=== PATIENT | female | born 1960 | race Caucasian/White ===

== ENCOUNTER 2017-02-10 18:30 | Emergency (ER) | payer OTHER ==
[~2017-02-10] VITALS: Ht 152.4 cm; Wt 59.4 kg
[2017-02-10 18:38] VITALS: Ht 152.4 cm; Wt 59.4 kg
--- NOTE | 2017-02-10 22:17 | ERD ---
ER Documentation Chief Complaint Chief Complaint Abdominal pain HPI The patient is a 56-year-old female, presenting to the ER because of suprapubic abdominal pain intermittently for 1 week. She had similar symptoms previously, denies fever, chills, neck pain, chest pain, complains of dysuria, denies diarrhea, constipation.She does not smoke nor drink Past medical history: Gastritis, DM PSH: Cholecystectomy, one , hysterectomy ROS All systems reviewed and are negative except as per history of present illness. Medications Home Meds Active Scripts Phenazopyridine Hcl* (Pyridium*) 100 Mg Tab, 100 MG PO TID, #6 TAB Prov:JASPER LEGGETT MD 02/11/17 Sulfamethoxazole/Trimethoprim* (Bactrim Ds* Tablet) 1 Each Tablet, 1 TAB PO BID , #14 TAB Prov:JASPER LEGGETT MD 02/11/17 Reported Medications Omeprazole* (Omeprazole*) 20 Mg Capsule.dr, 20 MG PO DAILY, #30 CAP 02/11/17 Allergies Allergies: Coded Allergies: diclofenac (Unverified Allergy, Unknown, 02/11/17) Physical Exam Vitals Vital Signs Date Time Temp Pulse Resp B/P Pulse Ox O2 Delivery O2 Flow Rate FiO2 02/11/17 01:18 60 18 124/71 100 Room Air 02/10/17 23:30 98.0 57 18 126/64 100 Room Air 02/10/17 22:34 97.7 59 18 177/82 97 Room Air 02/10/17 18:38 98.4 71 18 176/79 97 Physical Exam Const: No acute distress. Head: Atraumatic. Eyes: Normal Conjunctiva. ENT: Normal External Ears, Nose and Mouth. Neck: Full range of motion. No meningismus. Resp: Clear to auscultation bilaterally. Cardio: Regular rate and rhythm. Abd: Soft, non distended, normal bowel sounds, Mild epigastric and suprapubic abdominal discomfort, no right lower quadrant, CVA, rigidity, rebound tenderness Skin: No petechiae or rashes. Back: No midline or flank tenderness. Ext: No cyanosis, or edema. Neur: Awake and alert. No focal deficit Psych: Normal Mood and Affect. Result Diagram: 02/10/17221902/10/172219 Results 24 hrs Laboratory Tests Test 02/10/17 22:20 02/10/17 22:50 White Blood Count 10.410^3/ul Red Blood Count 4.7210^6/ul Hemoglobin 13.7g/dl Hematocrit 41.8% Mean Corpuscular Volume 88.6fl Mean Corpuscular Hemoglobin 29.0pg Mean Corpuscular Hemoglobin Concent 32.8g/dl Red Cell Distribution Width 12.7% Platelet Count 32593^3/UL Mean Platelet Volume 10.2fl Neutrophils % 44.1% Lymphocytes % 46.1% Monocytes % 6.0% Eosinophils % 3.0% Basophils % 0.5% Nucleated Red Blood Cells % 0.0/100WBC Neutrophils # 4.610^3/ul Lymphocytes # 4.810^3/ul Monocytes # 0.610^3/ul Eosinophils # 0.310^3/ul Basophils # 0.110^3/ul Nucleated Red Blood Cells # 0.010^3/ul Sodium Level 146mmol/L Potassium Level 3.7mmol/L Chloride Level 107mmol/L Carbon Dioxide Level 29mmol/L Anion Gap 14 Blood Urea Nitrogen 14mg/dl Creatinine 0.58mg/dl Glucose Level 103mg/dl Calcium Level 9.2mg/dl Total Bilirubin 0.6mg/dl Direct Bilirubin 0.00mg/dl Indirect Bilirubin 0.6mg/dl Aspartate Amino Transf (AST/SGOT) 23IU/L Alanine Aminotransferase (ALT/SGPT) 31IU/L Alkaline Phosphatase 107IU/L Total Protein 8.4g/dl Albumin 4.4g/dl Globulin 4.00g/dl Albumin/Globulin Ratio 1.10 Lipase 117U/L Bedside Urine pH (LAB) 6.0 Bedside Urine Protein (LAB) Negative Bedside Urine Glucose (UA) Negative Bedside Urine Ketones (LAB) Negative Bedside Urine Blood 1+ Bedside Urine Nitrite (LAB) Negative Bedside Urine Leukocyte Esterase (L 1+ Current Medications Medications (Trade) Dose Ordered Sig/Eva Route PRN Reason Start Time Stop Time Status Last Admin Dose Admin Ketorolac Tromethamine (Toradol) 30 mg ONCE STAT IV 02/10/17 22:30 02/10/17 22:32 DC 02/10/17 22:45 Pantoprazole (Protonix Tab) 40 mg ONCE ONCE PO 02/10/17 22:30 02/10/17 22:32 DC 11/3/17 22:45 Procedures/MDM MEDICAL MAKING DECISION: The patient is a 56 yo female, presenting with acute cystitis, chronic gastritis. She was treated with Toradol 30 mg IV for pain and Protonix 30 mg p.o. for gastritis with good response. The differential diagnoses considered include but are not limited to cholelithiasis, cholecystitis, cystitis, pancreatitis, hepatitis, gastritis, peptic ulcer disease, gastric ulcer, appendicitis, diverticulitis, cholangitis, choledocholithiasis, partial small bowel obstruction. Departure Diagnosis: Primary Impression: UTI (urinary tract infection) Condition: Good Comments She was discharged with Bactrim DS and Pyridium The patient's blood pressure was elevated (>120/80) but appears stable without evidence of hypertension emergency or urgency. The patient was counseled about the risks of hypertension and urged to pursue outpatient monitoring and therapy within a week with their primary care physician. I discussed the findings with the patient. I advised the patient to follow-up with the primary physician in about 1-2 days, sooner if needed and return if any concern. Disclaimer: Inadvertent spelling and grammatical errors are likely due to EHR/ dictation software use and do not reflect on the overall quality of patient care. Also, please note that the electronic time recorded on this note does not necessarily reflect the actual time of the patient encounter. JASPER LEGGETT MD Feb 10, 2017 22:17
[2017-02-10] MEDS ORDERED: KETOROLAC 30 MG INJ IV STA (22:30)
[2017-02-10] MEDS ORDERED: PANTOPRAZOLE (EC) 40 MG TAB PO ONE (22:30)
[2017-02-10 23:30] VITALS: TEMP 98
[2017-02-11] MEDS ORDERED: OMEP20CA16 PO (00:03)
[2017-02-11] MEDS ORDERED: SULF1TAB31 PO (01:14)
[2017-02-11] MEDS ORDERED: PHEN-537 PO (01:15)
[2017-02-11 01:18] VITALS: BP 124/71; PULSE 60; RESP 18
== END 2017-02-11 01:18 | disposition home or self-care (01) ==
LOC: E/R 18:30
DX: N39.0 Urinary tract infection, site not specified (principal); E11.9 Type 2 diabetes mellitus without complications
CPT/HCPCS: 36415; 80053; 81003; 83690; 85025; 96374; J1885; Z7502; Z7610